=== PATIENT | female | born 1940 | race Caucasian/White ===

== ENCOUNTER 2017-02-02 00:05 | Emergency (ER) | payer MEDICARE | END 2017-02-02 02:32 | disposition home or self-care (01) | LOC: D.ER 00:05 | DX: S16.1XXA Strain of muscle, fascia and tendon at neck level, initial encounter (principal); W19.XXXA Unspecified fall, initial encounter; Y93.89 Activity, other specified; Y92.89 Other specified places as the place of occurrence of the external cause; G25.81 Restless legs syndrome; I73.00 Raynaud's syndrome without gangrene; M35.00 Sjogren syndrome, unspecified ==

== ENCOUNTER 2017-11-03 10:27 | Emergency (ER) | payer MEDICARE | END 2017-11-03 13:52 | disposition home or self-care (01) | LOC: D.ER 10:27 | DX: S20.219A Contusion of unspecified front wall of thorax, initial encounter (principal); V43.52XA Car driver injured in collision with other type car in traffic accident, initial encounter; Y93.89 Activity, other specified; Y92.410 Unspecified street and highway as the place of occurrence of the external cause; S16.1XXA Strain of muscle, fascia and tendon at neck level, initial encounter; S29.012A Strain of muscle and tendon of back wall of thorax, initial encounter; M62.838 Other muscle spasm; M35.00 Sjogren syndrome, unspecified; I73.00 Raynaud's syndrome without gangrene ==

== ENCOUNTER 2017-11-15 13:22 | Emergency (ER) | payer MEDICARE ==
[2017-11-15 14:38] LABS: BASOPHILS 1.8 % (0-2); EOSINOPHILS 5.7 % (0-7); HEMATOCRIT 36.7 % (36.0-48.0); HEMOGLOBIN 11.8 g/dL (12-16); IMMATURE GRANULOCYTES 0.2 % (0-5); LYMPHOCYTES 25.7 % (15-50); MCH 29.3 pg (26.0-34.0); MCHC 32.2 g/dL (31.0-37.0); MCV 91.1 fL (80.0-100.0); MEAN PLATELET VOLUME 10.1 fL (7.4-10.4); MONOCYTES 7.5 % (2-11); NEUTROPHILS 59.1 % (40-80); PLATELET COUNT 172 10x3/uL (130-400); RBC 4.03 10x6/uL (4.00-5.40); WBC 4.4 10x3/uL (4.8-10.8)
[2017-11-15 14:54] LABS: ALBUMIN 3.4 g/dL (3.4-5.0); ALKALINE PHOSPHATASE 72 U/L (46-116); ALT (SGPT) 17 U/L (10-68); BILIRUBIN - TOTAL 0.26 mg/dL (0.2-1.3); CALC OSMOLALITY 271 mosm/kg (275-300); CALCIUM 8.5 mg/dL (8.5-10.1); CARBON DIOXIDE 29.6 mmol/L (21.0-32.0); CHLORIDE - SERUM 104 mmol/L (98-107); CREATININE - SERUM 0.9 mg/dL (0.6-1.3); GLUCOSE 98 mg/dL (74-106); POTASSIUM - SERUM 3.7 mmol/L (3.5-5.1); PROTEIN - SERUM 6.8 g/dL (6.4-8.2); SODIUM 135 mmol/L (136-145); UREA NITROGEN 18 mg/dL (7-18); eGFR NON AFRICAN AMERICAN 64 mL/min (90-120)
[2017-11-15 14:58] LABS: TROPONIN-I < 0.017 ng/mL (0.000-0.060)
== END 2017-11-15 17:45 | disposition home or self-care (01) ==
LOC: D.ER 13:22
PROVIDERS: Emergency Medicine
DX: R07.89 Other chest pain (principal); I73.00 Raynaud's syndrome without gangrene; M35.00 Sjogren syndrome, unspecified

== ENCOUNTER → 2018-02-05 16:53 | Outpatient (CLI) | payer MEDICARE | END | disposition home or self-care (01) | LOC: D.MAMMO 01-07 10:00 | DX: Z12.31 Encounter for screening mammogram for malignant neoplasm of breast (principal) ==

== ENCOUNTER 2018-08-29 20:33 | Emergency (ER) | payer MEDICARE ==
[~2018-08-29] VITALS: Ht 154.9 cm; Wt 52.3 kg
[2018-08-29 20:40] VITALS: Ht 154.9 cm; Wt 52.3 kg
[2018-08-29] MEDS ORDERED: PLAQUENIL 200200 MG (20:41)
[2018-08-29] MEDS ORDERED: CYCLOBENZAPRINE10 MG (20:41)
[2018-08-29] MEDS ORDERED: LEVOTHYROXINE100 MCG (20:41)
[2018-08-29] MEDS ORDERED: ULTRAM50 MG (20:41)
[2018-08-29] MEDS ORDERED: XANAX0.5 MG (20:42)
[2018-08-29 21:04] LABS: BASOPHILS 1.8 % (0-2); EOSINOPHILS 5.3 % (0-7); HEMATOCRIT 37.3 % (36.0-48.0); HEMOGLOBIN 12.1 g/dL (12-16); IMMATURE GRANULOCYTES 0.2 % (0-5); LYMPHOCYTES 28.2 % (15-50); MCH 29.1 pg (26.0-34.0); MCHC 32.4 g/dL (31.0-37.0); MCV 89.7 fL (80.0-100.0); MEAN PLATELET VOLUME 10.4 fL (7.4-10.4); MONOCYTES 7.9 % (2-11); NEUTROPHILS 56.6 % (40-80); PLATELET COUNT 163 10x3/uL (130-400); RBC 4.16 10x6/uL (4.00-5.40); WBC 4.9 10x3/uL (4.8-10.8)
[2018-08-29 21:19] LABS: ALBUMIN 3.3 g/dL (3.4-5.0); ALKALINE PHOSPHATASE 69 U/L (46-116); ALT (SGPT) 18 U/L (10-68); BILIRUBIN - TOTAL 0.15 mg/dL (0.2-1.3); CALC OSMOLALITY 287 mosm/kg (275-300); CALCIUM 8.5 mg/dL (8.5-10.1); CARBON DIOXIDE 26.1 mmol/L (21.0-32.0); CHLORIDE - SERUM 106 mmol/L (98-107); CREATININE - SERUM 1.1 mg/dL (0.6-1.3); GLUCOSE 109 mg/dL (74-106); POTASSIUM - SERUM 3.9 mmol/L (3.5-5.1); PROTEIN - SERUM 7.2 g/dL (6.4-8.2); SODIUM 143 mmol/L (136-145); UREA NITROGEN 17 mg/dL (7-18); eGFR NON AFRICAN AMERICAN 51 mL/min (90-120)
[2018-08-29 21:20] LABS: CREATINE KINASE 118 UL (21-215); TROPONIN-I < 0.017 ng/mL (0.000-0.060)
[2018-08-29 21:38] LABS: APTT 24.1 SECONDS (22.8-39.4); INR 1.01 (0.85-1.17); PROTIME 12.8 SECONDS (11.6-15.0)
[2018-08-29 21:39] LABS: D-DIMER-QUANTITATIVE 0.85 ug/mLFEU (0.20-0.54)
[2018-08-29 23:50] VITALS: BP 133/67
== END 2018-08-29 23:50 | disposition home or self-care (01) ==
LOC: D.ER 20:33
PROVIDERS: Family Medicine
DX: R00.2 Palpitations (principal)

== ENCOUNTER 2020-02-24 14:00 | Outpatient (CLI) | payer MEDICARE ==
[2018-08-29 20:40] VITALS: BMI 21.7
[~2020-02-24 14:00] MED LIST: CYCLOBENZAPRINE10 MG; LEVOTHYROXINE100 MCG; PLAQUENIL 200200 MG; ULTRAM50 MG; XANAX0.5 MG
== END 2020-02-24 15:00 | disposition home or self-care (01) ==
LOC: D.MAMMO 14:00
PROVIDERS: ATTEND Emergency Medicine
DX: Z12.31 Encounter for screening mammogram for malignant neoplasm of breast (principal)

== ENCOUNTER 2020-12-19 15:35 | Emergency (ER) | payer MEDICARE ==
[~2020-12-19] VITALS: Ht 154.9 cm; Wt 52.3 kg
[~2020-12-19 15:35] MED LIST changes: +NAPROSYN500 MG PO; +PREDNISONE20 MG PO
[2020-12-19 15:38] VITALS: Ht 154.9 cm; Wt 52.3 kg
[2020-12-19 16:46] LABS: BASOPHILS 2.1 % (0-2); EOSINOPHILS 5.7 % (0-7); HEMATOCRIT 38.8 % (36.0-48.0); HEMOGLOBIN 12.3 g/dL (12-16); LYMPHOCYTE ABS# 1.15 10x3/uL (1.18-3.74); LYMPHOCYTES 27.3 % (15-50); MCH 28.9 pg (26.0-34.0); MCHC 31.7 g/dL (31.0-37.0); MCV 91.3 fL (80.0-100.0); MEAN PLATELET VOLUME 10.5 fL (7.4-10.4); NEUTROPHIL ABS# 2.32 10x3/uL (1.56-6.13); NEUTROPHILS 54.9 % (40-80); PLATELET COUNT 174 10x3/uL (130-400); RBC 4.25 10x6/uL (4.00-5.40); RDW 13.5 % (11.5-14.5); WBC 4.2 10x3/uL (4.8-10.8)
[2020-12-19 16:54] LABS: APTT 24.1 SECONDS (22.8-39.4); INR 1.01 (0.85-1.17); PROTIME 12.3 SECONDS (11.6-15.0)
[2020-12-19 16:58] LABS: CALC OSMOLALITY 283 mosm/kg (275-300); CALCIUM 9.2 mg/dL (8.5-10.1); CARBON DIOXIDE 31.6 mmol/L (21.0-32.0); CHLORIDE - SERUM 104 mmol/L (98-107); CREATININE - SERUM 1.1 mg/dL (0.6-1.3); GLUCOSE 99 mg/dL (74-106); POTASSIUM - SERUM 4.3 mmol/L (3.5-5.1); SODIUM 141 mmol/L (136-145); UREA NITROGEN 21 mg/dL (7-18); eGFR NON AFRICAN AMERICAN 51 mL/min (90-120)
[2020-12-19 17:06] LABS: ALBUMIN 3.5 g/dL (3.4-5.0); ALKALINE PHOSPHATASE 64 U/L (30-120); ALT (SGPT) 19 U/L (10-68); BILIRUBIN - TOTAL 0.27 mg/dL (0.2-1.3); MAGNESIUM - SERUM 2.3 mg/dL (1.8-2.4); PROTEIN - SERUM 7.3 g/dL (6.4-8.2); TROPONIN-I < 0.017 ng/mL (0.000-0.060)
[2020-12-19] MEDS ORDERED: MECLIZINE HCL25 MG PO (17:34)
[2020-12-19 17:52] VITALS: BP 179/74
== END 2020-12-19 17:52 | disposition home or self-care (01) ==
LOC: D.ER 15:35
PROVIDERS: Emergency Medicine
DX: R42 Dizziness and giddiness (principal); R11.0 Nausea; M79.7 Fibromyalgia